=== PATIENT | male | born 1955 | race Caucasian/White ===

== ENCOUNTER 2018-05-16 19:43 | Observation (INO) ==
[2018-05-16 20:37] LABS: Chloride 103 meq/L (98-107); Sodium 134 meq/L (136-145)
[2018-05-16 20:41] LABS: Anion Gap 12 meq/L (5-15); Blood Urea Nitrogen 10 mg/dL (7-18); Calcium 8.5 mg/dL (8.5-10.1); Glucose,Random 143 mg/dL (74-106)
[2018-05-16 20:45] LABS: Alanine Aminotransferase 17 U/L (12-78); Aspartate Aminotransferase 32 U/L (15-37); Glomerular Filtration Rate 87 mL/min (>89)
[2018-05-16 20:46] LABS: Total Protein 6.8 g/dL (6.4-8.2)
[2018-05-16 20:47] LABS: Alkaline Phosphatase 76 U/L (45-117)
[2018-05-16 21:12] LABS: Bilirubin,Urine Small (Negative); Clarity,Urine Clear (Clear); Color,Urine Yellow (Yellw/Straw); Glucose,Urine (UA) Negative (Negative); Leukocyte Esterase,Urine Negative (Negative); Nitrite,Urine Negative (Negative); PH,Urine 5.5 (5.0-8.5); Specific Gravity,Urine Greater/Equal 1.030 (1.002-1.035)
[2018-05-16 21:17] LABS: Ictotest,Urine Positive (Negative)
[2018-05-16 21:20] LABS: Cocaine Screen,Urine Neg (Neg)
[2018-05-16 21:23] LABS: Potassium 4.7 meq/L (3.5-5.1)
[2018-05-16 21:26] LABS: RBC,Urine 0-3 /hpf (0-3)
[2018-05-16 21:28] LABS: Squamous Epithelial Cell,Urine 0-5 /hpf (0-5)
[2018-05-16 21:29] LABS: Amphetamine Screen,Urine Neg (Neg)
[2018-05-16 21:30] LABS: Amorphous Sediment,Urine Few /hpf; Barbiturate Screen,Urine Neg (Neg); Mucus,Urine Many /lpf (Occasional); Sperm,Urine Few /hpf
[2018-05-16 21:33] LABS: Cannabinoid Screen,Urine Pos (Neg)
[2018-05-16 21:38] LABS: Opiate Screen,Urine Neg (Neg)
[2018-05-16 21:41] LABS: Baso # (Auto) 0.3 th/mm3 (0.0-0.2); Baso % (Auto) 2.1 % (0.0-2.0); Eos # (Auto) 0.1 th/mm3 (0.0-0.4); Eos % (Auto) 0.7 % (0.0-4.0); Hematocrit 47.2 % (39.0-51.0); Hemoglobin 16.7 gm/dL (13.0-17.0); Lymph # (Auto) 2.1 th/mm3 (1.0-4.8); Lymph % (Auto) 13.7 % (9.0-44.0); Mean Corpuscular HGB Conc 35.4 % (32.0-36.0); Mean Corpuscular Hemoglobin 31.3 pg (27.0-34.0); Mean Corpuscular Volume 88.4 fL (80.0-100.0); Mono # (Auto) 0.6 th/mm3 (0.0-0.9); Mono % (Auto) 4.1 % (0.0-8.0); Neut # (Auto) 12.1 th/mm3 (1.8-7.7); Neut % (Auto) 79.4 % (16.0-70.0); Platelet Count 192 th/mm3 (150-450); Red Blood Count 5.34 mil/mm3 (4.50-5.90); Red Cell Distribution Width 12.7 % (11.6-17.2); White Blood Count 15.2 th/mm3 (4.0-11.0)
[2018-05-16 21:57] LABS: Thyroid Stimulating Hormone 1.79 uIU/mL (0.358-3.740)
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
--- NOTE | 2018-05-16 22:53 | CT ---
EXAM DATE: 05/16/2018 10:40 PM EDT AGE/SEX: 62 years / Male INDICATIONS: Altered mental status. CLINICAL DATA: This is the patient's initial encounter. Patient reports that signs and symptoms have been present for 1 day and indicates a pain score of 0/10. MEDICAL/SURGICAL HISTORY: None. None. RADIATION DOSE: 61.44 CTDI (mGy) COMPARISON: No prior exams available for comparison. TECHNIQUE: CT of the head without contrast. Using automated exposure control and adjustment of the mA and/or kV according to patient size, radiation dose was kept as low as reasonably achievable to ob tain optimal diagnostic quality images. DICOM format image data is available electronically for revi ew and comparison. FINDINGS: Cerebrum: The ventricles are normal for age. No evidence of midline shift, mass lesion, hemorrhage or acute infarction. No extraaxial fluid collections are seen. Posterior Fossa: The cerebellum and brainstem are intact. The 4th ventricle is midline. The cerebe llopontine angle is unremarkable. Extracranial: The visualized portion of the orbits is intact. Skull: The calvaria is intact. No evidence of skull fracture. CONCLUSION: 1. No acute intracranial abnormalities. Electronically signed by: Deandre Carroll MD 05/16/2018 10:52 PM EDT
--- NOTE | 2018-05-16 23:03 | XR ---
EXAM DATE: 05/16/2018 10:33 PM EDT AGE/SEX: 62 years / Male INDICATIONS: Dizziness. CLINICAL DATA: This is the patient's initial encounter. Patient reports that signs and symptoms have been present for 1 day and indicates a pain score of 0/10. MEDICAL/SURGICAL HISTORY: Diabetes mellitus type II. Hypertension. . Bilateral knees. COMPARISON: No prior exams available for comparison. FINDINGS: PA and lateral views of the chest. Linear subsegmental atelectasis at the lateral left midlung. Mild diffuse bilateral interstitial opacity. 1 cm nodular density in the lateral right midlung. Cardiomedi astinal silhouette within normal limits. No evidence of pleural effusion or pneumothorax. CONCLUSION: 1. 1 cm nodular density right midlung. Recommend follow-up noncontrast chest CT. 2. Mild bilateral diffuse interstitial opacity may represent chronic lung disease or changes related to chronic tobacco use. Electronically signed by: Arvin Mcclain MD 05/16/2018 11:02 PM EDT
[2018-05-16] MEDS ORDERED: Levofloxacin 500 mg Premix Inj 500 MG/100 ML PIGGYBACK IV.SIG ONE (23:07)
[2018-05-16] MEDS ORDERED: LORazepam 1 MG Tablet PO PRN (23:24)
[2018-05-16] MEDS ORDERED: Haloperidol Inj 5 MG/ML Ampul IV.PUSH PRN (23:24)
[2018-05-16] MEDS ORDERED: Sod Chloride 0.9% Inj 1,000 ML IV.CONT SCH (23:30)
[2018-05-17] MEDS ORDERED: Multivitamin/Minerals Therapeutic Tablet PO SCH (09:00)
[2018-05-17] MEDS ORDERED: Folic Acid 1 MG Tablet PO SCH (09:00)
== END 2018-05-17 00:46 | disposition left against medical advice (07) ==
LOC: PHED 19:43 → PHEDA 19:43
PROVIDERS: ADMIT Hospitalist; ATTEND Hospitalist

== ENCOUNTER 2018-12-22 11:03 | Inpatient (IN) ==
--- NOTE | 2018-12-22 11:47 | ED ---
HPI General Chief complaint: Neuro Symptoms/Deficit Stated complaint: Unable to stand/confusion Time Seen by Provider: 12/22/18 12:10 Source: patient and family Mode of arrival: wheelchair Limitations: altered mental status History of Present Illness HPI narrative: This 63-year-old male is brought in by his daughter. He says that he was diagnosed with dementia 2 months ago. And the dementia apparently is attributed to long-term alcohol use. He lives at home alone. She visits him quite often and in fact has been spending nights with him. He had a fall 2 days ago in which he hit his head. He has been complaining of headache and has been less active since the fall. She says that he stays on the couch most of the time when he does walk he needs assistance. He has not been talking. His daughter says he has been incontinent of urine at times Related Data Home Medications Medication Instructions Recorded Confirmed Unable to Obtain Home Meds 12/22/18 12/22/18 Allergies Allergy/AdvReac Type Severity Reaction Status Date / Time No Known Allergies Allergy Verified 10/05/18 19:01 [facility] Medical History Medical History Patient denies medical problems (Acute) Surgical history unknown (Acute) Social History Social History Substance History: Past History Second Hand Smoke Exposure: Yes Smoking Status: Former smoker Tobacco Type: Cigarettes How Often Do You Have a Drink Containing Alcohol: Never Exam Narrative Exam Narrative: GENERAL: Somewhat disheveled male. He does smell of urine SKIN: Focused skin assessment warm/dry. HEAD: Atraumatic. Normocephalic. EYES: Pupils equal and round. No scleral icterus. No injection or drainage. ENT: No nasal bleeding or discharge. Mucous membranes pink and moist. NECK: Trachea midline. No JVD. CARDIOVASCULAR: Regular rate and rhythm. No murmur appreciated. RESPIRATORY: No accessory muscle use. Clear to auscultation. Breath sounds equal bilaterally. GASTROINTESTINAL: Abdomen soft, non-tender, nondistended. Hepatic and splenic margins not palpable. MUSCULOSKELETAL: No obvious deformities. No clubbing. No cyanosis. No edema. NEUROLOGICAL: Awake. Answers most questions with a single syllable. Does follow commands. Is unable to stand without assistance systems. Has a very narrow based unsteady gait PSYCHIATRIC: flat affect. Course Initial Documented Vital Signs Temperature 97.6 F 12/22/18 11:13 Pulse Rate 82 12/22/18 11:13 Respiratory Rate 18 02/12/19 11:13 Blood Pressure 135/83 12/22/18 11:13 Pulse Oximetry 95 12/22/18 11:13 Last Documented Vital Signs Temperature 98.2 F 12/22/18 14:30 Pulse Rate 68 12/22/18 14:30 Respiratory Rate 22 12/22/18 14:30 Blood Pressure 177/94 H 12/22/18 14:30 Pulse Oximetry 96 12/22/18 14:30 Medical Decision Making MDM Narrative Medical decision making narrative: CT is negative for acute process though it is noted that a stroke has developed in the left internal capsule since a CT of May 2018 Medical Screen Exam Complete: Yes Emergency Medical Condition: Yes Lab Data Result diagrams: 12/22/18 11:40 12/22/18 11:40 Lab Results 12/22/18 12/22/18 12/22/18 Range/Units 11:40 11:40 11:40 CBC w Diff Auto diff final WBC 9.6 (4.0-11.0) th/mm3 RBC 5.24 (4.50-5.90) mil/mm3 Hgb 15.6 (13.0-17.0) gm/dL Hct 47.1 (39.0-51.0) % MCV 89.8 (80.0-100.0) fL MCH 29.8 (27.0-34.0) pg MCHC 33.2 (32.0-36.0) % RDW 12.5 (11.6-17.2) % Plt Count 243 (150-450) th/mm3 MPV 8.1 (7.0-11.0) fL Neut % (Auto) 62.1 (16.0-70.0) % Lymph % (Auto) 27.0 (9.0-44.0) % [place] % (Auto) 6.1 (0.0-8.0) % Eos % (Auto) 4.1 H (0.0-4.0) % Baso % (Auto) 0.7 (0.0-2.0) % Neut # (Auto) 5.9 (1.8-7.7) th/mm3 Lymph # (Auto) 2.6 (1.0-4.8) th/mm3 [place] # (Auto) 0.6 (0.0-0.9) th/mm3 Eos # (Auto) 0.4 (0.0-0.4) th/mm3 Baso # (Auto) 0.1 (0.0-0.2) th/mm3 WBC Differential . Differential Comment . PT 9.9 (9.8-11.6) sec INR 1.0 Ratio APTT 26.2 (23.4-31.7) sec Sodium 139 (136-145) meq/L Potassium 4.0 (3.5-5.1) meq/L Chloride 106 (98-107) meq/L Carbon Dioxide 29.0 (21.0-32.0) meq/L Anion Gap 4 L (5-15) meq/L BUN 17 (7-18) mg/dL Creatinine 0.77 (0.60-1.30) mg/dL Estimated GFR Greater than 89 (>89) mL/min Random Glucose 149 H (74-106) mg/dL Calcium 9.3 (8.5-10.1) mg/dL Total Bilirubin 0.6 (0.2-1.0) mg/dL AST 10 L (15-37) U/L ALT 16 (12-78) U/L Alkaline Phosphatase 79 (45-117) U/L Total Protein 7.6 (6.4-8.2) g/dL Albumin 3.4 (3.4-5.0) g/dL Ur Collection Type Urine Color (Yellw/Straw) Urine Clarity (Clear) Urine pH (5.0-8.5) Ur Specific [place] (1.002-1.035) Urine Protein (Neg-Trace) mg/dL Urine Glucose (UA) (Negative) mg/dL Urine Ketones (Negative) mg/dL Urine Occult Blood (Negative) Urine Nitrate (Negative) Urine Bilirubin (Negative) Urine Urobilinogen (Less than 2) mg/dL Ur Leukocyte Esterase (Negative) Urine RBC (0-3) /hpf Urine WBC (0-5) /hpf Ur Transition Epith Cell (None) /hpf Urine Sperm (None) /hpf Micro UA Comment Ur Microscopic Review Urine Culture Comments Ur Barbiturates Screen (Neg) Urine Cocaine Screen (Neg) U Cannabinoids Screen (Neg) Serum Alcohol Less than 3 (0-5) mg/dL 12/22/18 12/22/18 Range/Units 13:25 13:25 CBC w Diff WBC (4.0-11.0) th/mm3 RBC (4.50-5.90) mil/mm3 Hgb (13.0-17.0) gm/dL Hct (39.0-51.0) % MCV (80.0-100.0) fL MCH (27.0-34.0) pg MCHC (32.0-36.0) % RDW (11.6-17.2) % Plt Count (150-450) th/mm3 MPV (7.0-11.0) fL Neut % (Auto) (16.0-70.0) % Lymph % (Auto) (9.0-44.0) % [place] % (Auto) (0.0-8.0) % Eos % (Auto) (0.0-4.0) % Baso % (Auto) (0.0-2.0) % Neut # (Auto) (1.8-7.7) th/mm3 Lymph # (Auto) (1.0-4.8) th/mm3 [place] # (Auto) (0.0-0.9) th/mm3 Eos # (Auto) (0.0-0.4) th/mm3 Baso # (Auto) (0.0-0.2) th/mm3 WBC Differential Differential Comment PT (9.8-11.6) sec INR Ratio APTT (23.4-31.7) sec Sodium (136-145) meq/L Potassium (3.5-5.1) meq/L Chloride (98-107) meq/L Carbon Dioxide (21.0-32.0) meq/L Anion Gap (5-15) meq/L BUN (7-18) mg/dL Creatinine (0.60-1.30) mg/dL Estimated GFR (>89) mL/min Random Glucose (74-106) mg/dL Calcium (8.5-10.1) mg/dL Total Bilirubin (0.2-1.0) mg/dL AST (15-37) U/L ALT (12-78) U/L Alkaline Phosphatase (45-117) U/L Total Protein (6.4-8.2) g/dL Albumin (3.4-5.0) g/dL Ur Collection Type Cath Urine Color Yellow (Yellw/Straw) Urine Clarity Clear (Clear) Urine pH 5.5 (5.0-8.5) Ur Specific [place] Greater/equal 1.030 (1.002-1.035) Urine Protein 30 H (Neg-Trace) mg/dL Urine Glucose (UA) 250 H (Negative) mg/dL Urine Ketones Trace H (Negative) mg/dL Urine Occult Blood Negative (Negative) Urine Nitrate Negative (Negative) Urine Bilirubin Negative (Negative) Urine Urobilinogen 1.0 (Less than 2) mg/dL Ur Leukocyte Esterase Negative (Negative) Urine RBC 0-3 (0-3) /hpf Urine WBC 0-5 (0-5) /hpf Ur Transition Epith Cell 1-5 H (None) /hpf Urine Sperm Few H (None) /hpf Micro UA Comment Cath-culture not ind Ur Microscopic Review Microscopic reviewed Urine Culture Comments Cath-cult not ind Ur Barbiturates Screen Neg (Neg) Urine Cocaine Screen Neg (Neg) U Cannabinoids Screen Neg (Neg) Serum Alcohol (0-5) mg/dL Imaging Data Radiologist's impression: Head CT 12/22/18 11:42 CONCLUSION: 1. No acute findings in the brain. 2. Left internal capsule lacunar infarct has developed since prior CT in May 2018. . Discharge Plan Discharge Disposition Patient Disposition: ED Admit(ED Internal Use Only) Discharge Condition Condition: Fair Discharge Order Discharge Orders: ED Use Only Admit Order (Routine); Ordered 12/22/18 Ordered By: Leonardo Brewster Discharge Details Diagnosis: Altered mental status Physicians Team ED Provider: Leonardo Brewster Primary Care Provider: Jarred Wright V Attending Provider: Gilbert Manuel Discharge Interventions Interventions: ED Discharge Assessment Last Done: 12/22/18 14:30 Status ED Status: Admitted Observation Patient
[2018-12-22 11:54] LABS: Baso # (Auto) 0.1 th/mm3 (0.0-0.2); Baso % (Auto) 0.7 % (0.0-2.0); Eos # (Auto) 0.4 th/mm3 (0.0-0.4); Eos % (Auto) 4.1 % (0.0-4.0); Hematocrit 47.1 % (39.0-51.0); Hemoglobin 15.6 gm/dL (13.0-17.0); Lymph # (Auto) 2.6 th/mm3 (1.0-4.8); Mean Corpuscular HGB Conc 33.2 % (32.0-36.0); Mean Corpuscular Hemoglobin 29.8 pg (27.0-34.0); Mean Corpuscular Volume 89.8 fL (80.0-100.0); Mean Platelet Volume 8.1 fL (7.0-11.0); Mono # (Auto) 0.6 th/mm3 (0.0-0.9); Mono % (Auto) 6.1 % (0.0-8.0); Neut # (Auto) 5.9 th/mm3 (1.8-7.7); Neut % (Auto) 62.1 % (16.0-70.0); Platelet Count 243 th/mm3 (150-450); Red Blood Count 5.24 mil/mm3 (4.50-5.90); Red Cell Distribution Width 12.5 % (11.6-17.2); White Blood Count 9.6 th/mm3 (4.0-11.0)
[2018-12-22 12:04] LABS: Chloride 106 meq/L (98-107); Sodium 139 meq/L (136-145)
[2018-12-22 12:07] LABS: Calcium 9.3 mg/dL (8.5-10.1)
[2018-12-22 12:08] LABS: Albumin 3.4 g/dL (3.4-5.0); Anion Gap 4 meq/L (5-15); Blood Urea Nitrogen 17 mg/dL (7-18); Glucose,Random 149 mg/dL (74-106)
[2018-12-22 12:09] LABS: Activated Partial Thrombo Time 26.2 sec (23.4-31.7); Prothrombin Time 9.9 sec (9.8-11.6)
[2018-12-22 12:11] LABS: Alanine Aminotransferase 16 U/L (12-78); Aspartate Aminotransferase 10 U/L (15-37); Glomerular Filtration Rate Greater Than 89 mL/min (>89)
[2018-12-22 12:13] LABS: Total Protein 7.6 g/dL (6.4-8.2)
[2018-12-22 12:14] LABS: Alkaline Phosphatase 79 U/L (45-117)
--- NOTE | 2018-12-22 12:22 | CT ---
EXAM DATE: 12/22/2018 12:08 PM EST AGE/SEX: 63 years / Male INDICATIONS: Altered mental status. CLINICAL DATA: This is the patient's initial encounter. Patient reports that signs and symptoms have been present for 1 day and indicates a pain score of 0/10. MEDICAL/SURGICAL HISTORY: None. None. RADIATION DOSE: 55.21 CTDI (mGy) COMPARISON: [facility], CT HEAD W/O CONTRAST, 05/16/2018. . TECHNIQUE: CT of the head without contrast. Using automated exposure control and adjustment of the mA and/or kV according to patient size, radiation dose was kept as low as reasonably achievable to ob tain optimal diagnostic quality images. DICOM format image data is available electronically for revi ew and comparison. FINDINGS: Cerebrum: The ventricles are normal for age. There is a lacunar infarct in the genuine of the chemical engineering intern al capsule on the left side which is a new finding when compared to prior CT in May 2018. No evidenc e of midline shift, mass lesion, hemorrhage or acute infarction. No extraaxial fluid collections are seen. Posterior Fossa: The cerebellum and brainstem are intact. The 4th ventricle is midline. The cerebe llopontine angle is unremarkable. Extracranial: The visualized portion of the orbits is intact. Mild bilateral ethmoid sinus disease, similar to prior. Skull: The calvaria is intact. No evidence of skull fracture. CONCLUSION: 1. No acute findings in the brain. 2. Left internal capsule lacunar infarct has developed since prior CT in May 2018. . Electronically signed by: Etienne Quevedo MD Board Certified Radiologist 12/22/2018 12:20 PM EST
[2018-12-22] MEDS ORDERED: Acetaminophen 325 MG Tablet PO PRN (13:40)
[2018-12-22 13:48] LABS: Bilirubin,Urine Negative (Negative); Clarity,Urine Clear (Clear); Color,Urine Yellow (Yellw/Straw); Glucose,Urine (UA) 250 mg/dL (Negative); Leukocyte Esterase,Urine Negative (Negative); Nitrite,Urine Negative (Negative); PH,Urine 5.5 (5.0-8.5); Specific Gravity,Urine Greater/Equal 1.030 (1.002-1.035)
[2018-12-22 13:55] LABS: Barbiturate Screen,Urine Neg (Neg); Cannabinoid Screen,Urine Neg (Neg); Cocaine Screen,Urine Neg (Neg)
[2018-12-22 13:56] LABS: Amphetamine Screen,Urine Neg (Neg)
[2018-12-22] MEDS: Sod Chloride 0.9% Inj 1,000 ML IV.CONT SCH (13:56)
[2018-12-22 14:01] LABS: RBC,Urine 0-3 /hpf (0-3); WBC,Urine 0-5 /hpf (0-5)
[2018-12-22 14:02] LABS: Sperm,Urine Few /hpf
[2018-12-22 14:46] LABS: Opiate Screen,Urine Neg (Neg)
[2018-12-22] MEDS ORDERED: Dextrose 50% in Water 50 ML Vial IV.PUSH PRN (16:13)
--- NOTE | 2018-12-22 16:30 | P.HPIM ---
History of Present Illness Primary Care Physician: Jarred Wright MD Chief Complaint: Profound weakness History of Present Illness: 63-year-old male with known history of chronic alcohol use, possible dementia who presented to hospital because of profound weakness, speech difficulties, unable to care for self. Patient was able to give some history and information. Majority information was taken from daughter "Barbra" at bedside. She indicates that she lives about a mile away and does check on him on a regular basis. She indicates that he has had episodes of altered mentation where he has been brought to the hospital back in May 2018, also in September 2018. During this time patient had had some change in mentation, difficulty in speech, falls. In September it would appears if the patient presented for altered mentation and was told that he had possible dementia. Patient went to her primary medical doctor's office and indicated that he had moderate dementia. Over the last 2 months he has quit drinking alcohol and his capacities have been failing very slowly. The patient mental status has progressively getting worse, speech has been becoming more difficult with slurred and difficulty in obtaining words. The daughter indicates that it takes him a prolonged period of time in order to eat. Over the last 3 days has progressively become weak to where he is not able to ambulate, move on his own. Today they tried to get him off the couch and he fell onto the ground and they called the ambulance who brought him to the hospital for evaluation patient did have workup done which CT scan was performed and actually shows a new lacunar infarct in the left internal capsule which is new from May 2018. It was recommended that the patient be admitted to hospital for further evaluation and management. Review of Systems Review of Systems: all other systems reviewed are negative Neurologic: Reports abnormal movements, Reports abnormal speech, Reports abnormal gait, Reports frequent falls, Reports lack of coordination, Reports disequilibrium and Reports weakness PMFSH Medical History Medical History History of alcohol abuse (Acute) Patient denies medical problems (Acute) Surgical history unknown (Acute) Surgical History Surgical History History of knee surgery (Acute) Family History Family History Father Family history of stroke Social History Social History Substance History: No History of Abuse Second Hand Smoke Exposure: Yes Smoking Status: Current every day smoker Tobacco Type: Cigarettes Years Smoked: 50 How Often Do You Have a Drink Containing Alcohol: Monthly or less Recent Travel in [facility] within the Last 8 Weeks: No Recent Out of Country Travel within the Last 8 Weeks: No Substance Abuse Detail Alcohol: Substance Use Status: Early Remission Route Used Substance Abuse: By Mouth Substance Abuse Comment: Last drink 1month ago and stoped Immunization History Tetanus Immunization: Unsure Medications and Allergies Allergies Allergy/AdvReac Type Severity Reaction Status Date / Time No Known Allergies Allergy Verified 10/05/18 19:01 Home Medications Medication Instructions Recorded Confirmed Type Unable to Obtain Home Meds 12/22/18 12/22/18 History Active Medications: Active Medications Acetaminophen (Tylenol) 650 mg PO Q4H PRN PRN Reason: Temp > 100.4 Al Hydroxide/Mg Hydroxide (Milk Of Magnesia Liq) 30 ml PO Q12H PRN PRN Reason: Mild Constipation Aspirin (Aspirin) 325 mg PO DAILY [facility] Atorvastatin Calcium (Lipitor) 10 mg PO HS [facility] Dextrose (D50w Vial) 50 ml IV.PUSH UNSCH PRN PRN Reason: PER HYPOGLYCEMIA PROTOCOL Enalaprilat (Vasotec Inj) 1.25 mg IV.PUSH Q4H PRN PRN Reason: For SBP > 220 or DBP > 120 Glucagon (Glucagon Inj) 1 mg OTHER UNSCH PRN PRN Reason: for Hypoglycemia Protocol Sodium Chloride (Ns Inj) 1,000 mls @ 80 mls/hr IV.CONT .[id number] [facility] Last Infusion: 12/22/18 14:30 Dose: 80 mls/hr Insulin Aspart (Novolog Insulin Correctional Sugar Inj) 0 unit SQ ACHS [facility]; Protocol Ondansetron HCl (Zofran Inj) 4 mg IV.PUSH Q6H PRN PRN Reason: NAUSEA OR VOMITING Sodium Chloride (Ns Flush) 2 ml IV.FLUSH BID [facility] Sodium Chloride (Ns Flush) 2 ml IV.FLUSH PRN PRN PRN Reason: FLUSH AFTER USING IV ACCESS Physical Exam Vital signs: Vital Signs 12/22/18 11:13 12/22/18 13:38 12/22/18 14:30 Temperature 97.6 F 98.2 F Pulse Rate 82 96 H 68 Respiratory Rate 18 20 22 Blood Pressure 135/83 159/94 H 177/94 H Pulse Oximetry 95 98 96 12/22/18 16:00 Temperature 98.1 F Pulse Rate 72 Respiratory Rate 20 Blood Pressure 168/87 H Pulse Oximetry 96 Intake & Output 12/21/18 12/22/18 12/22/18 18:59 06:59 18:59 Intake Total 80 / 80 Output Total 100 / 100 Balance -20 / -20 Weight 81.9 kg Intake: IV 80 / 80 NS Inj 1,000 ML @ 80 mls/hr IV. 80 / 80 CONT .[id number] [facility] Rx#: [id number] Output: Urine 100 / 100 Other: Date of Last Bowel Movement 12/22/18 Weight On Admission 80 kg Narrative: GENERAL: Well-developed, well-nourished, in no acute distress. alert , orientated to city, daughter, president. Difficult to express year, month. Patient has some expressive dysphasia and some mild slurred speech HEENT: Head is normocephalic without any lesions or masses noted. Facial features are symmetric. Eyes: Pupils equal round reactive to light. Extraocular muscles are intact. Conjunctivae were clear. Oropharyngeal: Pharynx without any erythema edema. Tongue is midline without deviation. Buccal mucosa is moist without any masses or lesions NECK: Supple without any masses. Trachea midline no deviation. No JVD, no bruits are appreciated CARDIAC: Regular rhythm, regular rate. S1/S2 are heard. No murmurs gallops or rubs. LUNGS: Clear to auscultation bilaterally. No wheeze, rhonchi or rales. No use of accessory muscles on inspiration or expiration. ABDOMEN: Soft, nontender. Nondistended. Bowel sounds heard in all 4 quadrants. No organomegaly or masses. Negative rebound, negative guarding EXTREMITIES: No edema, pulses are equal bilaterally. No cyanosis or clubbing NEUROLOGY: Mood and affect appear appropriate. Muscle strength 5/5 in upper and lower extremities bilaterally. Deep tendon reflexes are 2+ in upper and lower extremities bilaterally. Results Labs CBC & Chem 7: 12/22/18 11:40 12/22/18 11:[address] 12/22/18 11:42 CONCLUSION: 1. No acute findings in the brain. 2. Left internal capsule lacunar infarct has developed since prior CT in May 2018. . Caprini VTE Risk Assessment Caprini VTE Risk Assessment: Moderate/High Risk (score >= 2) Caprini Risk Assessment Model: Point Value = 1 Point Value = 2 Point Value = 3 Point Value = 5 Age 41-60 Minor surgery BMI > 25 kg/m2 Swollen legs Varicose veins or History of unexplained or recurrent spontaneous Oral contraceptives or hormone replacement Sepsis (< 1 month) Serious lung disease, including pneumonia (< 1 month) Abnormal pulmonary function Acute myocardial infarction Congestive heart failure (< 1 month) History of inflammatory bowel disease Medical patient at bed rest Age 61-74 Arthroscopic surgery Major open surgery (> 45 min) Laparoscopic surgery (> 45 min) Malignancy Confined to bed (> 72 hours) Immobilizing plaster cast Central venous access Age >= 75 History of VTE Family history of VTE Factor V Leiden Prothrombin [id number] Lupus anticoagulant Anticardiolipin antibodies Elevated serum homocysteine Heparin-induced thrombocytopenia Other congenital or acquired thrombophilia Stroke (< 1 month) Elective arthroplasty Hip, pelvis, or leg fracture Acute spinal cord injury (< 1 month) Prophylaxis Regimen: Total Risk Factor Score Risk Level Prophylaxis Regimen 0-1 Low Early ambulation 2 Moderate Order ONE of the following: *Sequential Compression Device (SCD) *Heparin 5000 units SQ BID 3-4 Higher Order ONE of the following medications: *Heparin 5000 units SQ TID *Enoxaparin/Lovenox 40 mg SQ daily (WT < 150 kg, CrCl > 30 mL/min) *Enoxaparin/Lovenox 30 mg SQ daily (WT < 150 kg, CrCl > 10-29 mL/min) *Enoxaparin/Lovenox 30 mg SQ BID (WT < 150 kg, CrCl > 30 mL/min) AND/OR *Sequential Compression Device (SCD) 5 or more Highest Order ONE of the following medications: *Heparin 5000 units SQ TID (Preferred with Epidurals) *Enoxaparin/Lovenox 40 mg SQ daily (WT < 150 kg, CrCl > 30 mL/min) *Enoxaparin/Lovenox 30 mg SQ daily (WT < 150 kg, CrCl > 10-29 mL/min) *Enoxaparin/Lovenox 30 mg SQ BID (WT < 150 kg, CrCl > 30 mL/min) AND *Sequential Compression Device (SCD) Assessment and Plan Plan Altered mental status, profound weakness, expressive dysphagia, new lacunar infarct seen on CT CT scan indicating left internal capsular lacunar infarct which has developed since May 2018, is not indicated whether this is acute, subacute or remote We will pursue full neurological workup given the CT finding and patient's clinical presentation. Obtain MRI/MRA of the brain, carotid ultrasound, echocardiogram Obtain further labs to include B12, folate, sed rate, RPR, ammonia level, TSH PT/OT/ST evaluations Start aspirin 325 mg daily Permissive hypertension with Vasotec as needed for blood pressure control Consult neurology for further recommendations multimedia project manager consulted for inpatient rehab versus rehab facility DVT prevention Sequential compression devices Code Status: Full code Discussed Condition With: Patient, nursing staff, daughter at bedside, Dr. Manuel H&P: Quality VTE Deep Vein Thrombosis/Pulmonary Embolism Present on Admission: No
[2018-12-22] MEDS: Insulin NovoLOG Aspart Correctional Sugar Inj SQ SCH ×2 (16:35→20:55)
[2018-12-22 17:47] LABS: Thyroid Stimulating Hormone 1.82 uIU/mL (0.358-3.740)
--- NOTE | 2018-12-22 18:17 | P.CONNEU ---
History of Present Illness Service: Neurology Primary Care Provider: Jarred Wright MD Chief Complaint: Profound weakness History of Present Illness: 63-year-old male admitted for generalized weakness, dementia. CT brain scan demonstrated interval left subcortical infarct. History of ethanolism. Patient states he came in after having a fall. States he does have recurrent falls. Does not use a walker or any assistive device. States he lives alone his daughter lives a block away. Does not think he takes any blood thinners. Denies any unilateral weakness, denies any spinal pain or any radicular symptomatology or headache. Review of Systems All other systems reviewed negative except as stated in HPI [facility] - History History Provided By: Patient, Family Member - Medical History Medical History: Medical History (Last Updated 12/22/18 @ 16:26 by EDWIN Magaña) History of alcohol abuse Patient denies medical problems Surgical history unknown - Surgical History Surgical History: Surgical History (Last Updated 12/22/18 @ 16:26 by EDWIN Magaña) History of knee surgery - Family History Family History: Family History Father Family history of stroke - Tobacco History Second Hand Smoke Exposure: Yes Tobacco Use In Past 30 Days: Yes Smoking Status: Current every day smoker Tobacco Type: Cigarettes Years Smoked: 50 - Alcohol History How Often Do You Have a Drink Containing Alcohol: Monthly or less - Substance Use History Substance History: No History of Abuse - Substance Use Type Alcohol Status: Early Remission Route Used: By Mouth Comment: Last drink 1month ago and stoped - Travel History Recent Travel in the [facility] Within the Last 8 Weeks: No Recent Travel Out of the Country Within the Last 8 Weeks: No - Immunization History Tetanus Immunization: Unsure Medications and Allergies Active Medications: Active Medications Acetaminophen (Tylenol) 650 mg PO Q4H PRN PRN Reason: Temp > 100.4 Al Hydroxide/Mg Hydroxide (Milk Of Magnesia Liq) 30 ml PO Q12H PRN PRN Reason: Mild Constipation Aspirin (Aspirin) 325 mg PO DAILY [facility] Atorvastatin Calcium (Lipitor) 10 mg PO HS [facility] Dextrose (D50w Vial) 50 ml IV.PUSH UNSCH PRN PRN Reason: PER HYPOGLYCEMIA PROTOCOL Enalaprilat (Vasotec Inj) 1.25 mg IV.PUSH Q4H PRN PRN Reason: For SBP > 220 or DBP > 120 Glucagon (Glucagon Inj) 1 mg OTHER UNSCH PRN PRN Reason: for Hypoglycemia Protocol Sodium Chloride (Ns Inj) 1,000 mls @ 80 mls/hr IV.CONT .[id number] [facility] Last Infusion: 12/22/18 14:30 Dose: 80 mls/hr Insulin Aspart (Novolog Insulin Correctional Sugar Inj) 0 unit SQ ACHS [facility]; Protocol Last Admin: 12/22/18 16:35 Dose: Not Given Ondansetron HCl (Zofran Inj) 4 mg IV.PUSH Q6H PRN PRN Reason: NAUSEA OR VOMITING Sodium Chloride (Ns Flush) 2 ml IV.FLUSH BID [facility] Sodium Chloride (Ns Flush) 2 ml IV.FLUSH PRN PRN PRN Reason: FLUSH AFTER USING IV ACCESS Allergies Allergy/AdvReac Type Severity Reaction Status Date / Time No Known Allergies Allergy Verified 10/05/18 19:01 Home Medications Medication Instructions Recorded Confirmed Type donepezil [Aricept] 5 mg PO DAILY 12/22/18 12/22/18 History escitalopram oxalate [Lexapro] 20 mg PO DAILY 12/22/18 12/22/18 History lisinopril 10 mg PO DAILY 12/22/18 12/22/18 History meloxicam [Mobic] 7.5 mg PO DAILY 12/22/18 12/22/18 History metformin 1,000 mg PO DAILY 12/22/18 12/22/18 History trazodone 50 mg PO HS 12/22/18 12/22/18 History Exam Vital signs: Vital Signs 12/22/18 11:13 12/22/18 13:38 12/22/18 14:30 Temperature 97.6 F 98.2 F Pulse Rate 82 96 H 68 Respiratory Rate 18 20 22 Blood Pressure 135/83 159/94 H 177/94 H Pulse Oximetry 95 98 96 12/22/18 16:00 Temperature 98.1 F Pulse Rate 72 Respiratory Rate 20 Blood Pressure 168/87 H Pulse Oximetry 96 Intake & Output 12/21/18 12/22/18 12/22/18 18:59 06:59 18:59 Intake Total 80 / 80 Output Total 100 / 100 Balance -20 / -20 Weight 81.9 kg Intake: IV 80 / 80 NS Inj 1,000 ML @ 80 mls/hr IV. 80 / 80 CONT .[id number] [facility] Rx#: [id number] Output: Urine 100 / 100 Other: Date of Last Bowel Movement 12/22/18 Weight On Admission 80 kg Narrative: GENERAL: in NAD, SKIN: Warm and dry. HEAD: Atraumatic. Normocephalic. EYES: Pupils equal and round. ENT: No nasal bleeding or discharge. NECK: Trachea midline. No JVD. CARDIOVASCULAR: Regular rate and rhythm. RESPIRATORY: No accessory muscle use. GASTROINTESTINAL: Abdomen soft, non-tender, nondistended. MUSCULOSKELETAL: Extremities without clubbing, cyanosis, or edema. NEUROLOGICAL: Awake and alert. Oriented 2-3, mild expressive type aphasia, dysarthric speech, No facial asymmetry, OU 3-2mm, eomi, VFF, No drift, left knee scar, mild calf atrophy, slightly reduced fine finger movements right hand compared to the left, tone normal in all 4 limbs, Sensory normal in all 4 extremities to pin, msr 1-2+ sym, no clonus, planterflexor, gait not assessed secondary fall risk PSYCHIATRIC: Appropriate mood and affect - Constitutional no acute distress - Routine HEENT Exam Head: Present: normocephalic Eye: Present: EOMI Results - Labs CBC & Chem 7: 12/22/18 11:40 12/22/18 11:40 Labs: Laboratory Results - last 24 hr 12/22/18 12/22/18 12/22/18 11:40 11:40 11:40 CBC w Diff Auto diff final WBC 9.6 RBC 5.24 Hgb 15.6 Hct 47.1 MCV 89.8 MCH 29.8 MCHC 33.2 RDW 12.5 Plt Count 243 MPV 8.1 Neut % (Auto) 62.1 Lymph % (Auto) 27.0 Prentiss % (Auto) 6.1 Eos % (Auto) 4.1 H Baso % (Auto) 0.7 Neut # (Auto) 5.9 Lymph # (Auto) 2.6 Prentiss # (Auto) 0.6 Eos # (Auto) 0.4 Baso # (Auto) 0.1 WBC Differential . Differential Comment . PT 9.9 INR 1.0 APTT 26.2 Sodium 139 Potassium 4.0 Chloride 106 Carbon Dioxide 29.0 Anion Gap 4 L BUN 17 Creatinine 0.77 Estimated GFR Greater than 89 POC Glucose Random Glucose 149 H Calcium 9.3 Total Bilirubin 0.6 AST 10 L ALT 16 Alkaline Phosphatase 79 Ammonia Total Protein 7.6 Albumin 3.4 TSH Ur Collection Type Urine Color Urine Clarity Urine pH Ur Specific [place] Urine Protein Urine Glucose (UA) Urine Ketones Urine Occult Blood Urine Nitrate Urine Bilirubin Urine Urobilinogen Ur Leukocyte Esterase Urine RBC Urine WBC Ur Transition Epith Cell Urine Sperm Micro UA Comment Ur Microscopic Review Urine Culture Comments Urine Opiates Screen Ur Barbiturates Screen Ur Amphetamines Screen U Benzodiazepines Scrn Urine Cocaine Screen U Cannabinoids Screen Serum Alcohol Less than 3 12/22/18 12/22/18 12/22/18 13:25 13:25 16:29 CBC w Diff WBC RBC Hgb Hct MCV MCH MCHC RDW Plt Count MPV Neut % (Auto) Lymph % (Auto) Prentiss % (Auto) Eos % (Auto) Baso % (Auto) Neut # (Auto) Lymph # (Auto) Prentiss # (Auto) Eos # (Auto) Baso # (Auto) WBC Differential Differential Comment PT INR APTT Sodium Potassium Chloride Carbon Dioxide Anion Gap BUN Creatinine Estimated GFR POC Glucose 117 Random Glucose Calcium Total Bilirubin AST ALT Alkaline Phosphatase Ammonia Total Protein Albumin TSH Ur Collection Type Cath Urine Color Yellow Urine Clarity Clear Urine pH 5.5 Ur Specific [place] Greater/equal 1.030 Urine Protein 30 H Urine Glucose (UA) 250 H Urine Ketones Trace H Urine Occult Blood Negative Urine Nitrate Negative Urine Bilirubin Negative Urine Urobilinogen 1.0 Ur Leukocyte Esterase Negative Urine RBC 0-3 Urine WBC 0-5 Ur Transition Epith Cell 1-5 H Urine Sperm Few H Micro UA Comment Cath-culture not ind Ur Microscopic Review Microscopic reviewed Urine Culture Comments Cath-cult not ind Urine Opiates Screen Neg Ur Barbiturates Screen Neg Ur Amphetamines Screen Neg U Benzodiazepines Scrn Neg Urine Cocaine Screen Neg U Cannabinoids Screen Neg Serum Alcohol 12/22/18 12/22/18 17:13 17:13 CBC w Diff WBC RBC Hgb Hct MCV MCH MCHC RDW Plt Count MPV Neut % (Auto) Lymph % (Auto) P[place]iss % (Auto) Eos % (Auto) Baso % (Auto) Neut # (Auto) Lymph # (Auto) Prentiss # (Auto) Eos # (Auto) Baso # (Auto) WBC Differential Differential Comment PT INR APTT Sodium Potassium Chloride Carbon Dioxide Anion Gap BUN Creatinine Estimated GFR POC Glucose Random Glucose Calcium Total Bilirubin AST ALT Alkaline Phosphatase Ammonia Less than 10 L Total Protein Albumin TSH 1.820 Ur Collection Type Urine Color Urine Clarity Urine pH Ur Specific [place] Urine Protein Urine Glucose (UA) Urine Ketones Urine Occult Blood Urine Nitrate Urine Bilirubin Urine Urobilinogen Ur Leukocyte Esterase Urine RBC Urine WBC Ur Transition Epith Cell Urine Sperm Micro UA Comment Ur Microscopic Review Urine Culture Comments Urine Opiates Screen Ur Barbiturates Screen Ur Amphetamines Screen U Benzodiazepines Scrn Urine Cocaine Screen U Cannabinoids Screen Serum Alcohol - Imaging Impressions Head CT 12/22/18 11:42 CONCLUSION: 1. No acute findings in the brain. 2. Left internal capsule lacunar infarct has developed since prior CT in May 2018. . Review/Management - Diagnosis (1) Dementia Code(s): F03.90 - Unspecified dementia without behavioral disturbance Status: Acute Current Visit: Yes (2) Lacunar stroke Code(s): I63.81 - Other cerebral infarction due to occlusion or stenosis of small artery Status: Acute Current Visit: Yes - Review/Management Plan: History of dementia, possible frontotemporal/primary progressive aphasia Possible new or subacute infarct. CT brain scan reviewed demonstrates left subcortical infarct and right subcortical infarct. Both appears subacute to chronic. There is also presence of mild frontal atrophy and temporal atrophy. No significant ventriculomegaly Recommendation Stroke workup as ordered by the medical service Follow B12, TSH Aspirin Physical therapy May benefit from inpatient rehab Outpatient follow-up with neurology for cognitive evaluations and treatment Behavioral modification and risk factor reduction. Weight loss, blood pressure control, blood sugar control, lipid control. Exercise
[2018-12-22 22:21] LABS: Folate 8.9 ng/mL (3.1-17.5)
[2018-12-23] MEDS: Sod Chloride 0.9% Inj 1,000 ML IV.CONT SCH ×2 (03:42→16:49)
[2018-12-23] MEDS: Insulin NovoLOG Aspart Correctional Sugar Inj SQ SCH ×4 (07:44→20:32)
[2018-12-23] MEDS: Aspirin 325 MG Tablet PO SCH (08:06)
[2018-12-23] MEDS ORDERED: Aspirin 325 MG Tablet PO SCH (09:00)
--- NOTE | 2018-12-23 09:06 | MR ---
EXAM DATE: 12/23/2018 9:03 AM EST AGE/SEX: 63 years / Male INDICATIONS: Altered mental status. Aphasia. Frequent falls. CVA. CLINICAL DATA: This is the patient's subsequent encounter. Patient reports that signs and symptoms h ave been present for 2 days and indicates a pain score of 0/10. MEDICAL/SURGICAL HISTORY: Diabetes. Hypertension. Sleep apnea. Smoker. ETOH abuse. . ACL re pair. Deviated septum. COMPARISON: [facility], MR HEAD W/O CONTRAST, 12/23/2018. . TECHNIQUE: 3D [id number] MRA was performed. Source images, multiplanar STS MIP, and 3D volum e MIP reconstructions were reviewed. FINDINGS: Moderate atherosclerotic vascular disease is evident. There is no major branch vessel occlusion. I se e no significant intracranial stenosis. CONCLUSION: 1. Moderate atherosclerotic disease, otherwise negative. Electronically signed by: Dimitris Harrison MD Board Certified Radiologist 12/23/2018 9:04 AM EST
--- NOTE | 2018-12-23 09:41 | MR ---
EXAM DATE: 12/23/2018 9:04 AM EST AGE/SEX: 63 years / Male INDICATIONS: Altered mental status. Aphasia. Frequent falls. CVA. CLINICAL DATA: This is the patient's subsequent encounter. Patient reports that signs and symptoms h ave been present for 2 days and indicates a pain score of 0/10. MEDICAL/SURGICAL HISTORY: Diabetes. Hypertension. Sleep apnea. Smoker. ETOH abuse. . ACL re pair. Deviated septum. COMPARISON: No prior exams available for comparison. TECHNIQUE: Multiplanar, multisequence examination of the brain was performed without contrast. FINDINGS: Cerebrum: The ventricles are normal for age. No evidence of midline shift, mass lesion, or hemorrha ge. There are old lacunar infarcts in the basal ganglia. No extraaxial fluid collections are seen. T he pituitary gland and suprasellar cistern are normal in configuration. White Matter: On the FLAIR weighted images there is extensive increased signal in the centrum semiov chon and periventricular white matter. There is also increased signal noted in the taras and midbrain. Posterior Fossa: The cerebellum and brainstem are intact. The 4th ventricle is midline. The cerebel lopontine angle is unremarkable. There is no lacunar infarct in the region of the taras. The cerebella r tonsils are normal in position. Diffusion Imaging: On the FLAIR weighted images there is an area of restricted diffusion with increa sed signal noted in the deep white matter of the right parietal lobe measuring up to approximately 1. 1 x 0.7 cm. Extracranial: The visualized portions of the orbits are unremarkable. There is mucosal thickening in the ethmoidal air cells and maxillary sinuses. CONCLUSION: 1. Small focal area of acute to subacute infarction in the deep white matter of the right parietal l obe with restricted diffusion. 2. No acute hemorrhage or mass effect. 3. Old lacunar infarcts in the basal ganglia and taras. 4. Extensive chronic small vessel ischemic change and atrophy. Electronically signed by: Thong Gustafson MD Board Certified Radiologist 12/23/2018 9:40 AM EST
[2018-12-23 10:06] LABS: Chol/HDL Ratio 5.93 Ratio; HDL Cholesterol 29.5 mg/dL (40.0-60.0)
--- NOTE | 2018-12-23 10:31 | US ---
EXAM DATE: 12/23/2018 10:03 AM EST AGE/SEX: 63 years / Male INDICATIONS: Cerebrovascular accident. Altered mental status, aphasia, frequent falls. Abnormal MRI demonstrating acute to subacute infarct in the right parietal lobe. CLINICAL DATA: This is the patient's initial encounter. Patient reports that signs and symptoms have been present for 1 day and indicates a pain score of 0/10. MEDICAL/SURGICAL HISTORY: . ETOH. . Knee surgery. COMPARISON: [facility], MRA HEAD W/O CONTRAST, 12/23/2018. . VELOCITY PARAMETERS: ICA/CCA Ratio: Right 0.9 , Left 1.0 ICA: Right 70 cm/sec, Left 79 cm/sec CCA: Right 75 cm/sec, Left 80 cm/sec ECA: Right 109 cm/sec, Left 105 cm/sec Vertebral: Right 39 cm/sec antegrade, Left 68 cm/sec antegrade FINDINGS: Right Carotid: Mild arteriosclerotic plaque is visualized.The waveforms are within normal limits. Th e distal right internal carotid artery could not be visualized. Left Carotid: Mild arteriosclerotic plaque is visualized. The waveforms are within normal limits. Other: None. CONCLUSION: 1. Mild plaque in both carotid systems with no visualized stenosis. The distal right internal caroti d artery cannot be visualized. 2. Normal antegrade flow in the vertebral arteries. Electronically signed by: Thong Gustafson MD Board Certified Radiologist 12/23/2018 10:13 AM EST
--- NOTE | 2018-12-23 10:33 | P.PNIM ---
Subjective Interval history: 63-year-old male who is seen examined today for follow-up on profound weakness, neurological deficits. Patient appears to be clinically stable. No significant change in his presenting symptoms. No improvement. Vital signs, blood pressure is elevated will start treating blood pressure at this time. Patient remains afebrile. Physical Exam Vital signs: Vital Signs 12/22/18 11:13 12/22/18 13:38 12/22/18 14:30 Temperature 97.6 F 98.2 F Pulse Rate 82 96 H 68 Respiratory Rate 18 20 22 Blood Pressure 135/83 159/94 H 177/94 H Pulse Oximetry 95 98 96 12/22/18 16:00 12/22/18 20:00 12/23/18 00:00 Temperature 98.1 F 97.6 F 97.4 F L Pulse Rate 72 64 60 Respiratory Rate 20 18 18 Blood Pressure 168/87 H 160/85 H 174/86 H Pulse Oximetry 96 93 L 95 12/23/18 04:00 12/23/18 08:00 Temperature 96.9 F L 97.3 F L Pulse Rate 64 70 Respiratory Rate 18 22 Blood Pressure 174/91 H 177/109 H Pulse Oximetry 93 L 96 Intake & Output 12/22/18 12/23/18 12/23/18 18:59 06:59 18:59 Intake Total 80 / 80 1120 / 1120 Output Total 103 / 103 350 / 350 Balance -23 / -23 770 / 770 Weight 81.9 kg 82 kg Intake: IV 80 / 80 1000 / 1000 NS Inj 1,000 ML @ 80 mls/hr IV. 80 / 80 1000 / 1000 CONT .[id number] [facility] Rx#: [id number] Oral 120 / 120 Output: Urine 103 / 103 350 / 350 Other: # Voids 1 Date of Last Bowel Movement 12/22/18 12/22/18 Weight On Admission 80 kg Narrative: GENERAL: Well-developed, well-nourished, in no acute distress. alert , orientated to city, daughter, president. Difficult to express year, month. Patient has some expressive dysphasia and some mild slurred speech HEENT: Head is normocephalic without any lesions or masses noted. Facial features are symmetric. Eyes: Extraocular muscles are intact. Conjunctivae were clear. Oropharyngeal: Pharynx without any erythema edema. Tongue is midline without deviation. Buccal mucosa is moist without any masses or lesions NECK: Supple without any masses. Trachea midline no deviation. No JVD, CARDIAC: Regular rhythm, regular rate. S1/S2 are heard. No murmurs gallops or rubs. LUNGS: Clear to auscultation bilaterally. No wheeze, rhonchi or rales. No use of accessory muscles on inspiration or expiration. ABDOMEN: Soft, nontender. Nondistended. Bowel sounds heard in all 4 quadrants. No organomegaly or masses. Negative rebound, negative guarding EXTREMITIES: No edema, pulses are equal bilaterally. No cyanosis or clubbing NEUROLOGY: Mood and affect appear appropriate. Moving all extremities, speech is clear Results Labs CBC & Chem 7: 12/22/18 11:40 12/22/18 11:40 Imaging Imaging: Impressions Head CT 12/22/18 11:42 CONCLUSION: 1. No acute findings in the brain. 2. Left internal capsule lacunar infarct has developed since prior CT in May 2018. . Head MRI 12/23/18 16:16 CONCLUSION: 1. Small focal area of acute to subacute infarction in the deep white matter of the right parietal lobe with restricted diffusion. 2. No acute hemorrhage or mass effect. 3. Old lacunar infarcts in the basal ganglia and taras. 4. Extensive chronic small vessel ischemic change and atrophy. Head MRA 12/23/18 16:16 CONCLUSION: 1. Moderate atherosclerotic disease, otherwise negative. Assessment and Plan (1) Dementia: Code(s): F03.90 - Unspecified dementia without behavioral disturbance Status: Acute (2) Lacunar stroke: Code(s): I63.81 - Other cerebral infarction due to occlusion or stenosis of small artery Status: Acute Plan Altered mental status, profound weakness, expressive dysphagia, new lacunar infarct seen on CT CT scan indicating left internal capsular lacunar infarct which has developed since May 2018, is not indicated whether this is acute, subacute or remote MRI of the brain indicating a small focal area of acute subacute infarction in the deep white matter of the right parietal lobe with restricted diffusion MRA of the brain showing moderate atherosclerotic disease, otherwise negative Awaiting carotid ultrasound and echocardiogram Further studies include B12, folate, ammonia level were unremarkable Mildly elevated sed rate Awaiting RPR, hemoglobin A1c PT/OT/ST evaluations Continue aspirin 325 mg daily Start blood pressure control Consulted neurology for further recommendations 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 Manuel Progress Note: Quality VTE Deep Vein Thrombosis/Pulmonary Embolism Present on Admission: No _ (1) Dementia Qualifiers: Alzheimer's disease onset: Dementia behavioral disturbance: Dementia type :
[2018-12-23] MEDS: Lisinopril 10 MG Tablet PO SCH (10:47)
[2018-12-23 16:57] LABS: Hemoglobin A1c 7.6 % (4.3-6.0)
--- NOTE | 2018-12-23 18:20 | ECHRPT ---
Indication: CVA/TIA CONCLUSIONS Normal left ventricular size. Wall thickness is measured at the upper limits of normal. The left ventricular systolic function is normal with an estimated ejection fraction in the range of 55-60%. Trace mitral valve regurgitation. Aortic valve sclerosis is present. There is trace tricuspid valve regurgitation. The estimated pulmonary arterial pressure is 18 mmHg. BP: / HR: Rhythm: Sinus MEASUREMENTS (Male / Female) Normal Values Technical Quality:Fair 2D ECHO LV Diastolic Diameter PLAX 5.7 cm 4.2 - 5.9 / 3.9 - 5.3 cm LV Systolic Diameter PLAX 4.2 cm IVS Diastolic Thickness 1.1 cm 0.6 - 1.0 / 0.6 - 0.9 cm LVPW Diastolic Thickness 1.0 cm 0.6 - 1.0 / 0.6 - 0.9 cm LV Relative Wall Thickness 0.4 RV Internal Dim ED PLAX 3.4 cm LVOT Diameter 1.9 cm Aortic Root Diameter 3.6 cm LA Systolic Diameter LX 3.7 cm 3.0 - 4.0 / 2.7 - 3.8 cm M-MODE AV Cusp Separation MM 1.1 cm DOPPLER AV Peak Velocity 179.0 cm/s AV Peak Gradient 12.8 mmHg AV Mean Gradient 6.5 mmHg AV Velocity Time Integral 42.0 cm LVOT Peak Velocity 78.6 cm/s LVOT Peak Gradient 2.5 mmHg LVOT Velocity Time Integral 21.0 cm AV Area Cont Eq vti 1.4 cm AV Area Cont Eq pk 1.2 cm Mitral E Point Velocity 59.2 cm/s Mitral A Point Velocity 83.9 cm/s Mitral E to A Ratio 0.7 LV E' Lateral Velocity 7.5 cm/s Mitral E to LV E' Lateral Ratio 7.8 LV E' Septal Velocity 12.3 cm/s Mitral E to LV E' Septal Ratio 4.8 TR Peak Velocity 140.0 cm/s TR Peak Gradient 7.8 mmHg Right Atrial Pressure 10.0 mmHg Pulmonary Artery Systolic Pressu 17.8 mmHg Right Ventricular Systolic Press 17.8 mmHg PV Peak Velocity 102.0 cm/s PV Peak Gradient 4.2 mmHg FINDINGS LEFT VENTRICLE Normal left ventricular size. Wall thickness is measured at the upper limits of normal. The left ventricular systolic function is normal with an estimated ejection fraction in the range of 55-60%. RIGHT VENTRICLE Normal right ventricular size and systolic function. LEFT ATRIUM The left atrial size is normal. RIGHT ATRIUM The right atrial size is normal. ATRIAL SEPTUM Normal atrial septal thickness without atrial level shunting by limited color doppler interrogation. AORTA The aortic root and proximal ascending aorta are normal in size on limited imaging. MITRAL VALVE Trace mitral valve regurgitation. AORTIC VALVE Aortic valve sclerosis is present. TRICUSPID VALVE There is trace tricuspid valve regurgitation. The estimated pulmonary arterial pressure is 18 mmHg. PULMONARY VALVE No pulmonary valve regurgitation or stenosis. VESSELS The inferior vena cava is normal in size. PERICARDIUM No pericardial effusion. Celio Deleon MD, FACC (Electronically Signed) Final Date:23 December 2018 18:20
[2018-12-23] MEDS ORDERED: traZODone 50 MG Tablet PO SCH (21:00)
[2018-12-24] MEDS: Sod Chloride 0.9% Inj 1,000 ML IV.CONT SCH (06:50)
[2018-12-24] MEDS: Insulin NovoLOG Aspart Correctional Sugar Inj SQ SCH ×4 (07:41→20:53)
[2018-12-24] MEDS: Lisinopril 10 MG Tablet PO SCH (10:01)
[2018-12-24] MEDS: Aspirin 325 MG Tablet PO SCH (10:01)
--- NOTE | 2018-12-24 10:51 | P.PNIM ---
Subjective Interval history: 63-year-old male who is seen examined today for follow-up on stroke, altered mental status, profound weakness. Nursing staff and occupational therapy indicating patient appears to be slower than usual. Upon evaluating patient he is alert and orientated to place, person. He does not have slower speech than yesterday. Blood pressure continues to be mildly elevated. Patient remains afebrile. Physical Exam Vital signs: Vital Signs 12/23/18 12:00 12/23/18 16:00 12/23/18 20:00 Temperature 98.0 F 97.6 F 96.8 F L Pulse Rate 72 65 64 Respiratory Rate 24 20 18 Blood Pressure 188/114 H 175/98 H 169/84 H Pulse Oximetry 96 96 91 L 12/24/18 00:00 12/24/18 03:52 12/24/18 04:00 Temperature 97.4 F L 97.0 F L Pulse Rate 56 L 77 64 Respiratory Rate 18 18 Blood Pressure 174/88 H 161/75 H Pulse Oximetry 92 L 94 L 12/24/18 08:00 12/24/18 09:09 Temperature 97.1 F L Pulse Rate 73 68 Respiratory Rate 16 Blood Pressure 160/65 H Pulse Oximetry 100 Intake & Output 12/23/18 12/24/18 12/24/18 18:59 06:59 18:59 Intake Total 1959 / 1899 236 / 236 Balance 1959 / 190 236 / 236 Weight 83.2 kg Intake: IV 1000 / 1000 900 / 900 236 / 236 NS Inj 1,000 ML @ 80 mls/hr IV. 1000 / 1000 900 / 900 236 / 236 CONT .[id number] [facility] Rx#: [id number] Oral 960 / 960 Oral Supplement 1000 / 1000 Other: # Voids 3 # Urine Diapers 6 Date of Last Bowel Movement 12/22/18 12/23/18 12/23/18 Narrative: GENERAL: Well-developed, well-nourished, in no acute distress. alert , orientated to person, city, daughter name. Difficult to express year, month. Patient has some expressive dysphasia and some mild slurred speech HEENT: Head is normocephalic without any lesions or masses noted. Facial features are symmetric. Eyes: Extraocular muscles are intact. Conjunctivae were clear. Oropharyngeal: Pharynx without any erythema edema. Tongue is midline without deviation. Buccal mucosa is moist without any masses or lesions NECK: Supple without any masses. Trachea midline no deviation. No JVD, CARDIAC: Regular rhythm, regular rate. S1/S2 are heard. No murmurs gallops or rubs. LUNGS: Clear to auscultation bilaterally. No wheeze, rhonchi or rales. No use of accessory muscles on inspiration or expiration. ABDOMEN: Soft, nontender. Nondistended. Bowel sounds heard in all 4 quadrants. No organomegaly or masses. Negative rebound, negative guarding EXTREMITIES: No edema, pulses are equal bilaterally. No cyanosis or clubbing NEUROLOGY: Mood and affect appear appropriate. Moving all extremities, speech is clear Results Labs CBC & Chem 7: 12/22/18 11:40 12/22/18 11:40 Assessment and Plan (1) Dementia: Code(s): F03.90 - Unspecified dementia without behavioral disturbance Status: Acute (2) Lacunar stroke: Code(s): I63.81 - Other cerebral infarction due to occlusion or stenosis of small artery Status: Acute Plan Altered mental status, profound weakness, expressive dysphagia, new lacunar infarct seen on CT CT scan indicating left internal capsular lacunar infarct which has developed since May 2018, is not indicated whether this is acute, subacute or remote MRI of the brain indicating a small focal area of acute subacute infarction in the deep white matter of the right parietal lobe with restricted diffusion MRA of the brain showing moderate atherosclerotic disease, otherwise negative Carotid ultrasound indicated mild atherosclerotic plaque. Waveforms are normal Echocardiogram indicating normal systolic function with ejection fraction 55-60 %. Aortic sclerosis is present. 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 Manuel Discharge Planning: Discharge to long term facility once arrangements made by case management Progress Note: Quality VTE Deep Vein Thrombosis/Pulmonary Embolism Present on Admission: No _ (1) Dementia Qualifiers: Alzheimer's disease onset: Dementia behavioral disturbance: Dementia type :
[2018-12-24] MEDS ORDERED: amLODIPine 5 MG Tablet PO SCH (11:30)
--- NOTE | 2018-12-24 14:52 | P.DS ---
DS: Providers Date of admission: 12/23/18 10:43 Primary care physician: Jarred Wright MD Consults: 12/22/18 16:13 Consult to Neurology Routine Consulting Provider: Evens Sparks Reason for Consultation: New lacunar infarct seen on CT. Patient with worsening strength, speech. Appreciate recommendations Notified:: Office Spoke with:: kayli Date Notified:: 12/22/18 Time Notified:: 16:24 Ordering Provider: JUSTEN Consult to Rehab Medicine Routine Consulting Provider: Genoveva Cm Reason for Consultation: Stroke patient, assist with Rehab recommendations Notified:: Service Spoke with:: jen Date Notified:: 12/22/18 Time Notified:: 16:21 Ordering Provider: JUSTEN Anticipated date of discharge: 12/24/18 Brief History from admission: 63-year-old male with known history of chronic alcohol use, possible dementia who presented to hospital because of profound weakness, speech difficulties, unable to care for self. Patient was able to give some history and information. Majority information was taken from daughter "Barbra" at bedside. She indicates that she lives about a mile away and does check on him on a regular basis. She indicates that he has had episodes of altered mentation where he has been brought to the hospital back in May 2018, also in September 2018. During this time patient had had some change in mentation, difficulty in speech, falls. In September it would appears if the patient presented for altered mentation and was told that he had possible dementia. Patient went to her primary medical doctor's office and indicated that he had moderate dementia. Over the last 2 months he has quit drinking alcohol and his capacities have been failing very slowly. The patient mental status has progressively getting worse, speech has been becoming more difficult with slurred and difficulty in obtaining words. The daughter indicates that it takes him a prolonged period of time in order to eat. Over the last 3 days has progressively become weak to where he is not able to ambulate, move on his own. Today they tried to get him off the couch and he fell onto the ground and they called the ambulance who brought him to the hospital for evaluation patient did have workup done which CT scan was performed and actually shows a new lacunar infarct in the left internal capsule which is new from May 2018. It was recommended that the patient be admitted to hospital for further evaluation and management. DS: Diagnosis Discharge Diagnosis (1) Dementia: Status: Acute (2) Lacunar stroke: Status: Acute (3) Altered mental status: Status: Acute DS: Summary 63-year-old male who originally presented to hospital because of progressive weakness, speech difficulties, unable to care for self. Patient was brought in by family because over the last few months he has been declining in his physical, mental status. It was indicated that they went to emergency department and there was mention that maybe he had dementia. They went to a prior medical doctor who indicated confirmation of the diagnosis. Over the last 2 months he then progressed to getting worse with his status. During that time he had quit drinking alcohol as well. The patient had difficulty in feeding himself as well as 3 days prior to coming the hospital he had profound weakness where he could not even get up off the couch by his self. He was not able to function on his own in his daughter who lives just a block away and checks him on a daily basis cannot help him get up. They brought him to the hospital for evaluation. Patient had workup done and there was a new left internal capsule lacunar infarct seen on CT scan. Patient was admitted to hospital with full neurological workup which did indicate small focal area of acute infarct in the deep white matter right parietal lobe with restricted diffusion. Patient had full neurological workup ascertained. Neurology followed the patient. Patient was found to have hyperlipidemia and started on statin. Patient was continued on aspirin for anticoagulation. Patient with multiple functional difficulties in physical therapy, occupational therapy requesting that the patient go to rehab for further evaluation and management. Case management was consulted for discharge planning. Patient met criteria for inpatient rehab. [facility] evaluated the patient and accepted the patient graciously for continued care and management. Currently the patient is stable at this time, however he does have significant weakness, he is going to require significant occupational, speech, physical therapy in order to regain function. Patient be discharged to inpatient rehab once arrangements made by case management. Altered mental status, profound weakness, expressive dysphagia, new lacunar infarct seen on CT CT scan indicating left internal capsular lacunar infarct which has developed since May 2018, is not indicated whether this is acute, subacute or remote MRI of the brain indicating a small focal area of acute subacute infarction in the deep white matter of the right parietal lobe with restricted diffusion MRA of the brain showing moderate atherosclerotic disease, otherwise negative Carotid ultrasound indicated mild atherosclerotic plaque. Waveforms are normal Echocardiogram indicating normal systolic function with ejection fraction 55-60 %. Aortic sclerosis is present. 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 versus rehab facility Elevated blood pressure Lisinopril continued Added Norvasc 5 mg daily Diabetes Accu-Cheks with sliding scale insulin Hemoglobin A1c 7.6 Possible alcohol dementia Continue Aricept Continue Lexapro, trazodone Decrease trazodone to 25 mg at bedtime, secondary to patient appears to have worsened mental slowing Time Spent with Patient Total time spent providing and/or coordinating discharge services: Greater than 30 minutes Quality: VTE Deep Vein Thrombosis/Pulmonary Embolism Present on Admission: No Exam Narrative Exam Narrative: GENERAL: Well-developed, well-nourished, in no acute distress. alert, orientated to person, city, daughter name. Difficult to express year, month. Patient has some expressive dysphasia and some mild slurred speech HEENT: Head is normocephalic without any lesions or masses noted. Facial features are symmetric. Eyes: Extraocular muscles are intact. Conjunctivae were clear. Oropharyngeal: Pharynx without any erythema edema. Tongue is midline without deviation. Buccal mucosa is moist without any masses or lesions NECK: Supple without any masses. Trachea midline no deviation. No JVD, CARDIAC: Regular rhythm, regular rate. S1/S2 are heard. No murmurs gallops or rubs. LUNGS: Clear to auscultation bilaterally. No wheeze, rhonchi or rales. No use of accessory muscles on inspiration or expiration. ABDOMEN: Soft, nontender. Nondistended. Bowel sounds heard in all 4 quadrants. No organomegaly or masses. Negative rebound, negative guarding EXTREMITIES: No edema, pulses are equal bilaterally. No cyanosis or clubbing NEUROLOGY: Mood and affect appear appropriate. Moving all extremities, speech is clear Results Labs on day of discharge: Labs from last 24 hours 12/24/18 12/23/18 12/23/18 11:30 20:31 16:11 POC Glucose 203 169 169 Hemoglobin A1c 12/23/18 04:39 POC Glucose Hemoglobin A1c 7.6 H Impressions ITS Impressions Head CT 12/22/18 11:42 CONCLUSION: 1. No acute findings in the brain. 2. Left internal capsule lacunar infarct has developed since prior CT in May 2018. . Carotid Doppler Study 12/23/18 00:00 CONCLUSION: 1. Mild plaque in both carotid systems with no visualized stenosis. The distal right internal carotid artery cannot be visualized. 2. Normal antegrade flow in the vertebral arteries. Head MRI 12/23/18 16:16 CONCLUSION: 1. Small focal area of acute to subacute infarction in the deep white matter of the right parietal lobe with restricted diffusion. 2. No acute hemorrhage or mass effect. 3. Old lacunar infarcts in the basal ganglia and taras. 4. Extensive chronic small vessel ischemic change and atrophy. Head MRA 12/23/18 16:16 CONCLUSION: 1. Moderate atherosclerotic disease, otherwise negative. Additional Comments Discussed with patient, family, case management, Dr. Manuel Discharge Plan Discharge Disposition Patient Disposition: [facility] Rehab Inpatient Discharge Condition Condition: Stable Discharge Order Discharge Orders: Discharge Order (Routine); Ordered 12/24/18 Ordered By: Ba Collazo Discharge Details Anticipated Discharge Date: 12/24/18 Discharge Comment: Discharged to [facility] once arrangements made Physicians Team ED Provider: Leonardo Brewster Primary Care Provider: Jarred Wright V Attending Provider: Gilbert Manuel Other Providers: Genoveva Cm ; Evens Sparks Rxs /Orders / Referrals /Forms Prescriptions: New trazodone 50 mg Tablet 25 mg PO HS Qty: 15 RF: 0 atorvastatin [Lipitor] 10 mg Tablet 10 mg PO HS Qty: 30 RF: 0 aspirin 325 mg Tablet 325 mg PO DAILY Qty: 30 RF: 0 amlodipine [Norvasc] 5 mg Tablet 5 mg PO DAILY Qty: 30 RF: 0 Continue escitalopram oxalate [Lexapro] 20 mg Tablet 20 mg PO DAILY RF: 0 metformin 500 mg Tablet Extended Release 24 Hr 1,000 mg PO DAILY RF: 0 donepezil [Aricept] 5 mg Tablet 5 mg PO DAILY RF: 0 lisinopril 10 mg Tablet 10 mg PO DAILY RF: 0 Discontinued trazodone 50 mg Tablet 50 mg PO HS RF: 0 meloxicam [Mobic] 7.5 mg Tablet 7.5 mg PO DAILY RF: 0 Referrals: Jarred Wright MD [Primary Care Provider] - See Instructions Evens Sparks MD [Physician] - See Instructions (Follow-up in 2-3 weeks) Primary Care Acacia Lebron [Family Provider] - See Instructions Discharge Interventions Interventions: Discharge Planning - Case Management Last Done: 12/23/18 08:07 Status ED Status: Left Department
[2018-12-24] MEDS ORDERED: traZODone 50 MG Tablet PO SCH (21:00)
[2018-12-25] MEDS ORDERED: amLODIPine 5 MG Tablet PO SCH (07:29)
--- NOTE | 2018-12-25 07:29 | P.PNIM ---
Subjective Interval history: 53-year-old male who is seen examined today for follow-up on altered mental status, acute stroke who laying in bed comfortably. Patient was discharged to [facility] yesterday, however, they are unable to provide transportation until today. Patient will go to [facility] today for continued care and management. Blood pressure still elevated. Patient remains afebrile Physical Exam Vital signs: Vital Signs 12/24/18 08:00 12/24/18 09:09 12/24/18 12:44 Temperature 97.1 F L Pulse Rate 73 68 71 Respiratory Rate 16 Blood Pressure 160/65 H Pulse Oximetry 100 12/24/18 13:04 12/24/18 18:31 12/24/18 20:00 Temperature 97.6 F 98.9 F 97.4 F L Pulse Rate 70 70 61 Respiratory Rate 18 16 18 Blood Pressure 169/111 H 179/95 H 158/92 H Pulse Oximetry 93 L 94 L 94 L 12/25/18 00:00 Temperature 98.4 F Pulse Rate 58 L Respiratory Rate 18 Blood Pressure 176/91 H Pulse Oximetry 92 L Intake & Output 12/24/18 12/25/18 12/25/18 18:59 06:59 18:59 Intake Total 236 / 236 Output Total 400 / 400 1000 / 1000 Balance -164 / -164 -1000 / -1000 Weight 83.2 kg Intake: IV 236 / 236 NS Inj 1,000 ML @ 80 mls/hr IV. 236 / 236 CONT .[id number] Rx#: [id number] Output: Urine 400 / 400 1000 / 1000 Other: # Incontinent Voids 3 Date of Last Bowel Movement 12/23/18 12/23/18 Narrative: GENERAL: Well-developed, well-nourished, in no acute distress. Awake HEENT: Head is normocephalic without any lesions or masses noted. Facial features are symmetric. CARDIAC: Regular rhythm, regular rate. S1/S2 are heard. No murmurs gallops or rubs. LUNGS: Clear to auscultation bilaterally. No wheeze, rhonchi or rales. No use of accessory muscles on inspiration or expiration. ABDOMEN: Soft, nontender. Nondistended. Bowel sounds heard in all 4 quadrants. No organomegaly or masses. Negative rebound, negative guarding EXTREMITIES: No edema, pulses are equal bilaterally. No cyanosis or clubbing Results Labs CBC & Chem 7: 12/22/18 11:40 12/22/18 11:40 Assessment and Plan (1) Dementia: Code(s): F03.90 - Unspecified dementia without behavioral disturbance Status: Acute (2) Lacunar stroke: Code(s): I63.81 - Other cerebral infarction due to occlusion or stenosis of small artery Status: Acute (3) Altered mental status: Code(s): R41.82 - Altered mental status, unspecified Status: Acute Plan Altered mental status, profound weakness, expressive dysphagia, new lacunar infarct seen on CT CT scan indicating left internal capsular lacunar infarct which has developed since May 2018, is not indicated whether this is acute, subacute or remote MRI of the brain indicating a small focal area of acute subacute infarction in the deep white matter of the right parietal lobe with restricted diffusion MRA of the brain showing moderate atherosclerotic disease, otherwise negative Carotid ultrasound indicated mild atherosclerotic plaque. Waveforms are normal Echocardiogram indicating normal systolic function with ejection fraction 55-60 %. Aortic sclerosis is present. 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 Manuel Discharge Planning: Awaiting transportation to [facility] Progress Note: Quality VTE Deep Vein Thrombosis/Pulmonary Embolism Present on Admission: No _ (1) Dementia Qualifiers: Alzheimer's disease onset: Dementia behavioral disturbance: Dementia type : (2) Altered mental status Qualifiers: Altered mental status type: disorientation Coma depth: Coma timing: Qualified Code(s): R41.0 - Disorientation, unspecified
[2018-12-25] MEDS: Lisinopril 10 MG Tablet PO SCH (08:05)
[2018-12-25] MEDS: Aspirin 325 MG Tablet PO SCH (08:05)
[2018-12-25] MEDS: Insulin NovoLOG Aspart Correctional Sugar Inj SQ SCH (08:06)
== END 2018-12-25 10:53 | DRG 65 ==
LOC: PHED 11:03 → INTOOBSV 13:40 → PHEDA 13:40 → PH3 14:23
PROVIDERS: ADMIT Hospitalist; ATTEND Hospitalist
DX: E11.9 Type 2 diabetes mellitus without complications; R47.02 Dysphasia; I67.2 Cerebral atherosclerosis; Z82.3 Family history of stroke; I10 Essential (primary) hypertension; F10.21 Alcohol dependence, in remission; I63.81 Other cerebral infarction due to occlusion or stenosis of small artery; Z79.84 Long term (current) use of oral hypoglycemic drugs; R29.6 Repeated falls; R26.81 Unsteadiness on feet; E78.5 Hyperlipidemia, unspecified; F10.27 Alcohol dependence with alcohol-induced persisting dementia; G31.9 Degenerative disease of nervous system, unspecified; Y90.0 Blood alcohol level of less than 20 mg/100 ml; I70.0 Atherosclerosis of aorta; R53.1 Weakness; F17.210 Nicotine dependence, cigarettes, uncomplicated
CPT/HCPCS: 70450; 70544; 70551; 80053; 80061; 80307; 81001; 82140; 82607; 82746; 82948; 82962; 83036; 84443; 85025; 85610; 85651; 85652; 85730; 86592; 92610; 93306; 93880; 97110; 97116; 97162; 97167; 97530; 97535; 99285; G0195; G8987; G8988; G8996; G8997; J1815; J7030